=== PATIENT | female | born 1995 | race Two or more races ===

== ENCOUNTER 2020-04-05 13:36 | Emergency (ER) | payer OTHER ==
[~2020-04-05] VITALS: Ht 154.9 cm; Wt 56.5 kg
[2020-04-05] MEDS ORDERED: IV NORMAL SALINE 1,000ML 1,000 ML IV ONE (14:30)
[2020-04-05 14:38] LABS: BILIRUBIN,URINE NEG (NEG); CLARITY,URINE CLEAR; COLOR,URINE STRAW; GLUCOSE,URINE NEG (NEG)
[2020-04-05 14:39] LABS: BACTERIA,URINE 0 /HPF (0-FEW); NITRITE,URINE NEG (NEG); RBC,URINE 0 /HPF (0-2); UROBILINOGEN,URINE 0.2 mg/dL (0.2 mg/dL)
[2020-04-05 14:40] LABS: SQUAMOUS EPITHELIAL CELL,UR OCC /LPF
[2020-04-05] MEDS ORDERED: ONDANSETRON PF 4 MG/2 ML VIAL. IVP ONE (14:45)
--- NOTE | 2020-04-05 14:53 | RAD ---
EXAM: First Trimester OB Ultrasound INDICATION: Reason: bleeding in / Spl. Instructions: / History: TECHNIQUE: Real-time first trimester obstetrical ultrasound was performed with permanent freeze-frame documentation. COMPARISON: None. FINDINGS: GESTATIONAL SAC: No intrauterine or extrauterine gestational sac identified. POLE: Not applicable CROWN RUMP LENGTH: Not applicable HEART RATE: Not applicable PLACENTA: Not applicable MATERNAL UTERUS: Uterus measures 8.9 x 5.1 x 4.4 cm and has an endometrial stripe that measures 2.4 cm. MATERNAL ADNEXA: No adnexal mass with normal-appearing ovaries, measuring 3.4 x 3.1 x 2.3 cm on the right and 3.1 x 2.4 x 1.5 cm on the left. AGE/DATES: Gestational Age by LMP: 5 weeks 1 day Gestational Age by US: Undetermined EDC by LMP: December 05, 2020 EDC by US: Undetermined IMPRESSION: Sonographic findings compatible with a of unknown location, possibly reflecting inaccurate dates, complete spontaneous , or ectopic . Recommend correlation with serial beta hCG measurements and follow-up OB ultrasound. Electronically signed by: Kaela Irvin MD (04/05/2020 2:50 PM) [facility]
[2020-04-05 15:00] LABS: BASO % 1 % (0-3); EOS # 0.4 x10^3/uL (0.0-0.7); EOS % 6 % (0-3); HEMATOCRIT 39.2 % (36.0-47.0); HEMOGLOBIN 13.3 g/dL (12.0-15.5); LYMPH # 2.3 x10^3/uL (1.0-4.8); LYMPH % 34 % (24-48); MEAN CORPUSCULAR HEMOGLOBIN 30 pg (25-35); MEAN CORPUSCULAR HGB CONC 34 g/dL (31-37); MEAN CORPUSCULAR VOLUME 89 fL (79-100); MONO # 0.7 x10^3/uL (0.0-1.1); MONO % 10 % (0-9); NEUT # 3.4 x10^3uL (1.8-7.7); NEUT % 50 % (31-73); PLATELET COUNT 187 x10^3/uL (140-400); RED BLOOD COUNT 4.43 x10^6/uL (3.50-5.40); RED CELL DISTRIBUTION WIDTH 13.5 % (11.5-14.5); WHITE BLOOD COUNT 6.9 x10^3/uL (4.0-11.0)
[2020-04-05 15:08] LABS: CALCIUM 8.4 mg/dL (8.5-10.1); CREATININE 0.7 mg/dL (0.6-1.0); GFR 102.8; MAGNESIUM 2.1 mg/dL (1.8-2.4); POTASSIUM 3.4 mmol/L (3.5-5.1)
--- NOTE | 2020-04-05 15:31 | PHYS DOC ---
General Adult EDM: Chief Complaint: VAGINAL BLEEDING HPI: HPI: Patient is a 24 year old female, who presents with bilateral lower quadrant abdominal pain and bleeding. Patient reports a last menstrual period on the 28 of February. She reports having a home test positive earlier this week. She reports spotting vaginal bleeding over the past 2 days requiring 2 pads. She has colicky bilateral lower quadrant abdominal pain starting yesterday approximately 8 out of 10, patient denies radiation pain. She describes her pain in the ED as colicky and 6/10. She reports one episode of nausea approximately 2 hours ago, this episode resolved spontaneously. Past medical history is positive for elective at 7 weeks approximately 3 years ago. This was nonoperative done with medication. Patient denies any history of D&C. She reports no ongoing medical conditions and has no prior surgeries. Review of Systems: Review of Systems: Constitutional: Denies fever or chills Eyes: Denies redness or eye pain HENT: Denies nasal congestion or sore throat Respiratory: Denies cough or shortness of breath Cardiovascular: Denies chest pain or palpitations GI: Denies abdominal pain, nausea, or vomiting : Denies dysuria or hematuria Musculoskeletal: Denies back pain or joint pain Integument: Denies rash or skin lesions Neurologic: Denies headache, focal weakness or sensory changes Complete systems were reviewed and found to be within normal limits, except as documented in this note. Heart Score: Risk Factors: Risk Factors: DM, Current or recent (<one month) smoker, HTN, HLP, family history of CAD, obesity. Risk Scores: Score 0 - 3: 2.5% MACE over next 6 weeks - Discharge Home Score 4 - 6: 20.3% MACE over next 6 weeks - Admit for Clinical Observation Score 7 - 10: 72.7% MACE over next 6 weeks - Early Invasive Strategies Current Medications: Current Meds: Current Medications Medications (Trade) Dose Ordered Sig/[facility] Start Time Stop Time Status Last Admin Dose Admin Ondansetron HCl (Zofran) 4 mg 1X ONCE 04/05/20 14:45 04/05/20 14:46 DC Sodium Chloride 1,000 ml @ 1,000 mls/hr 1X ONCE 04/05/20 14:30 04/05/20 15:29 DC 04/05/20 14:57 1,000 MLS/HR Allergies: Allergies: Allergies Coded Allergies Type Severity Reaction Last Updated Verified No Known Drug Allergies 04/05/20 No Physical Exam: PE: Constitutional: Well developed, well nourished, no acute distress, non-toxic appearance HENT: Normocephalic, atraumatic. Cranial nerves II through XII grossly intact bilaterally. Eyes: PERRL, EOMI, conjunctiva normal, no discharge Neck: Normal range of motion, no tenderness, supple. Lungs & Thorax: Bilateral breath sounds clear to auscultation, no wheezing Abdomen: Soft, no tenderness. Negative rebound tenderness negative heel strike. Patient has guarding on palpation. Bilateral lower quadrant pain. Bowel sounds present in all 4 quadrants. Skin: Warm, dry, no erythema, no rash Back: No tenderness, no CVA tenderness Extremities: No tenderness, ROM intact, no edema. 2+4 pulses in all 4 extremities bilaterally. Neurologic: Alert and oriented X 3, normal motor function, normal sensory function, no focal deficits noted. Psychologic: Affect normal, judgment normal. 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 Patient has moderate amount of white and bloody discharge from her cervix. No large clots or tissue is seen in the vaginal vault. Mild cervical motion tenderness present. Right adnexal pain on palpation. No adnexal masses bilaterally. Current Patient Data: Labs: Laboratory Tests Test 04/05/20 13:48 04/05/20 14:03 04/05/20 14:39 Urine Collection Type Unknown Urine Color Straw Urine Clarity Clear Urine pH 6.5 Urine Specific Hominy 1.020 Urine Protein Neg (NEG-TRACE) Urine Glucose (UA) Neg mg/dL (NEG) Urine Ketones (Stick) Neg mg/dL (NEG) Urine Blood Small (NEG) Urine Nitrite Neg (NEG) Urine Bilirubin Neg (NEG) Urine Urobilinogen Dipstick 0.2 mg/dL (0.2 mg/dL) Urine Leukocyte Esterase Neg (NEG) Urine RBC 0 /HPF (0-2) Urine WBC 1-4 /HPF (0-4) Urine Squamous Epithelial Cells Occ /LPF Urine Bacteria 0 /HPF (0-FEW) POC Urine HCG, Qualitative hcg positive (Negative) White Blood Count 6.9 x10^3/uL (4.0-11.0) Red Blood Count 4.43 x10^6/uL (3.50-5.40) Hemoglobin 13.3 g/dL (12.0-15.5) Hematocrit 39.2 % (36.0-47.0) Mean Corpuscular Volume 89 fL (79-100) Mean Corpuscular Hemoglobin 30 pg (25-35) Mean Corpuscular Hemoglobin Concent 34 g/dL (31-37) Red Cell Distribution Width 13.5 % (11.5-14.5) Platelet Count 187 x10^3/uL (140-400) Neutrophils (%) (Auto) 50 % (31-73) Lymphocytes (%) (Auto) 34 % (24-48) Monocytes (%) (Auto) 10 % (0-9) H Eosinophils (%) (Auto) 6 % (0-3) H Basophils (%) (Auto) 1 % (0-3) Neutrophils # (Auto) 3.4 x10^3uL (1.8-7.7) Lymphocytes # (Auto) 2.3 x10^3/uL (1.0-4.8) Monocytes # (Auto) 0.7 x10^3/uL (0.0-1.1) Eosinophils # (Auto) 0.4 x10^3/uL (0.0-0.7) Basophils # (Auto) 0.0 x10^3/uL (0.0-0.2) Sodium Level 140 mmol/L (136-145) Potassium Level 3.4 mmol/L (3.5-5.1) L Chloride Level 105 mmol/L (98-107) Carbon Dioxide Level 24 mmol/L (21-32) Anion Gap 11 (6-14) Blood Urea Nitrogen 12 mg/dL (7-20) Creatinine 0.7 mg/dL (0.6-1.0) Estimated GFR (Cockcroft-Gault) 102.8 Glucose Level 90 mg/dL (70-99) Calcium Level 8.4 mg/dL (8.5-10.1) L Magnesium Level 2.1 mg/dL (1.8-2.4) EKG: EKG: [] Radiology/Procedures: Radiology/Procedures: PROCEDURE: OB <14 WKS EXAM: First Trimester OB Ultrasound INDICATION: Reason: bleeding in / Spl. Instructions: / History: TECHNIQUE: Real-time first trimester obstetrical ultrasound was performed with permanent freeze-frame documentation. COMPARISON: None. FINDINGS: GESTATIONAL SAC: No intrauterine or extrauterine gestational sac identified. POLE: Not applicable CROWN RUMP LENGTH: Not applicable HEART RATE: Not applicable PLACENTA: Not applicable MATERNAL UTERUS: Uterus measures 8.9 x 5.1 x 4.4 cm and has an endometrial stripe that measures 2.4 cm. MATERNAL ADNEXA: No adnexal mass with normal-appearing ovaries, measuring 3.4 x 3.1 x 2.3 cm on the right and 3.1 x 2.4 x 1.5 cm on the left. AGE/DATES: Gestational Age by LMP: 5 weeks 1 day Gestational Age by US: Undetermined EDC by LMP: December 05, 2020 EDC by US: Undetermined IMPRESSION: Sonographic findings compatible with a of unknown location, possibly reflecting inaccurate dates, complete spontaneous , or ectopic . Recommend correlation with serial beta hCG measurements and follow-up OB ultrasound. Electronically signed by: Kaela Irvin MD (04/05/2020 2:50 PM) [facility] Course & Med Decision Making: Course & Med Decision Making Pertinent Labs and Imaging studies reviewed. (See chart for details) [] 24-year-old female, G2, P0, presents with 1 day history of bilateral lower quadrant abdominal pain. This could represent a spontaneous or ectopic . Ultrasound appears negative for ectopic however it is likely too early to be seen on imaging. Patient appears hemodynamically stable. We will trend her beta-hCG and discharge to primary. GC results pending. [place] Disclaimer: [place] Disclaimer: This electronic medical record was generated, in whole or in part, using a voice recognition dictation system. Departure Departure: Impression: Primary Impression: Pelvic pain in Additional Impression: Threatened miscarriage in early Disposition: 01 HOME/RESIDENCE PRIOR TO ADM Condition: STABLE Referrals: PCP,NO (PCP) Patient Instructions: Abdominal Pain During , [id number], Threatened Miscarriage, [id number], Vaginal Bleeding During , First Trimester Additional Instructions: Please follow up with your doctor or urgent care in 48-72 hours for recheck of your BHCG level. This will help further evaluate for an ectopic . Justification of Admission: Justification of Admission: Justification of Admission Dx: N/A SUGEY GARCIA DO Apr 05, 2020 15:30
[2020-04-05 17:05] VITALS: BP 95/39
[2020-04-06 18:07] LABS: CHLAMYDIA PROBE Negative (Negative)
== END 2020-04-05 17:09 | disposition home or self-care (01) ==
LOC: ER 13:36
DX: O20.0 Threatened abortion (principal); Z3A.01 Less than 8 weeks gestation of pregnancy
CPT/HCPCS: 36415; 76801; 80048; 81001; 81025; 83735; 84702; 85025; 86900; 86901; 87491; 87591; 96360; 99284; J7030; Q0111

== ENCOUNTER 2020-05-27 20:11 | Emergency (ER) | payer OTHER ==
[~2020-05-27] VITALS: Ht 154.9 cm; Wt 56.5 kg
--- NOTE | 2020-05-27 20:17 | PHYS DOC ---
Past History Past Medical History: Additional Past Medical Histor: Prior Past Surgical History: No Surgical History Smoking: Non-smoker Alcohol Use: None Drug Use: None General Adult EDM: Chief Complaint: VAGINAL PROBLEM HPI: HPI: ".. I don't know what's going on.. .About two months ago.. I was .. then had some bleeding... and I was having a miscarry... but the bleeding has started again.. and I am cramping really bad.. got fever and chills.. I just hurt all over in my lower abdomen. " Patient is a 25 year old female who presents with above complaints of vaginal bleeding and severe cramping. Pt. complaining of fever and chills.. Patient states she has been passing clots. The patient denies any trauma. No specific ill contacts. No recent travel outside the [place] area. Follows with Dr. Glass Review of Systems: Review of Systems: Constitutional: Complains of fever or chills Eyes: Denies change in visual acuity HENT: Denies nasal congestion or sore throat Respiratory: Denies cough or shortness of breath Cardiovascular: Denies chest pain or edema GI: Complains of severe pelvic abdominal pain, nausea,. Denies vomiting, bloody stools or diarrhea : Denies dysuria Musculoskeletal: Denies back pain or joint pain Integument: Denies rash Neurologic: Denies headache, focal weakness or sensory changes Endocrine: Denies polyuria or polydipsia Lymphatic: Denies swollen glands Psychiatric: Denies depression or anxiety Heart Score: HEART Score for Chest Pain: HEART Score for Chest Pain Response (Comments) Value History Slighlty/Non-Suspicious 0 ECG Normal 0 Age < 45 0 Risk Factors 1 or 2 Risk Factors 1 Troponin < Normal Limit 0 Total 1 Risk Factors: Risk Factors: DM, Current or recent (<one month) smoker, HTN, HLP, family history of CAD, obesity. Risk Scores: Score 0 - 3: 2.5% MACE over next 6 weeks - Discharge Home Score 4 - 6: 20.3% MACE over next 6 weeks - Admit for Clinical Observation Score 7 - 10: 72.7% MACE over next 6 weeks - Early Invasive Strategies Family History: Family History: Noncontributory to presentation Current Medications: Current Meds: See nursing for home meds Allergies: Allergies: Allergies Coded Allergies Type Severity Reaction Last Updated Verified No Known Drug Allergies 04/05/20 No Physical Exam: PE: Constitutional: Well developed, well nourished, in acute distress, ill in appearance appearance. Having shaking chills. HENT: Normocephalic, atraumatic, bilateral external ears normal, oropharynx moist, no oral exudates, nose normal. [] Eyes: PERRLA, EOMI, conjunctiva normal, no discharge. [] Neck: Normal range of motion, no tenderness, supple, no stridor. [] Cardiovascular: Tachycardia heart rate regular rhythm, no murmur [] Lungs & Thorax: Bilateral breath sounds equal apex on auscultation [] Abdomen: Bowel sounds decreased, marked pelvic tenderness, no masses, no pulsatile masses. Vaginal exam-active bleeding from os. Cervical motion tenderness. Adnexal tenderness. Rectal some formed stool in vault. Rebound to the lower abdomen Skin: Warm, diaphoretic, no erythema, no rash. [] Back: No tenderness, no CVA tenderness. [] Extremities: No tenderness, no cyanosis, no clubbing, ROM intact, no edema. Bilateral psoas or heel tap Neurologic: Alert and oriented X 3, normal motor function, normal sensory function, no focal deficits noted. [] Psychologic: Affect anxious, judgement normal, mood normal. [] EKG: EKG: EKG shows a sinus rhythm at 65 bpm, slightly prolonged QT interval at 522 ms, QTC is 533 ms [] Radiology/Procedures: Radiology/Procedures: [[address] [address] IMAGING REPORT Signed PATIENT: NEYDA WONG ACCOUNT: [id number] : 1995 LOCATION: ER AGE: 25 SEX: F EXAM STATUS: REG ER ORD. PHYSICIAN: DORIS ALCANTAR MD REASON: VAG BLEEDING PROCEDURE: PREG 1ST TRIMESTER Exam: Ultrasound OB less than 14 weeks Indication: Vaginal bleeding Technique: Real-time grayscale and color Doppler images of the pelvis were obtained by the department food service coordinator. Comparisons: None FINDINGS: Uterus measures 11 x 6.2 x 5.5 cm. In the lower uterine segment/cervix in the endometrium there is a 4.3 cm cystic lesion. No internal yolk sac or pole is identified. Ovaries are not visualized. No pelvic free fluid identified. IMPRESSION: At the lower uterine segment/cervix within the endometrium there is a cystic lesion measuring 4.3 cm which may represent an abnormal gestational sac. No yolk sac or pole are identified. Findings are favored represent a failing intrauterine . Recommend correlation with serial beta hCG measurements and short-term follow-up ultrasound. Electronically signed by: Juan Jose Price MD (05/27/2020 9:09 PM) [id number] DICTATED AND SIGNED BY: JUAN JOSE PRICE MD DATE: 05/27/202108 CC: DORIS ALCANTAR MD; PCP,NO ~ ][address] [address] IMAGING REPORT Signed PATIENT: NEYDA WONG ACCOUNT: [id number] : 1995 LOCATION: ER AGE: 25 SEX: F EXAM STATUS: REG ER ORD. PHYSICIAN: DORIS ALCANTAR MD REASON: VAG BLEEDING PROCEDURE: PREG 1ST TRIMESTER Exam: Ultrasound OB less than 14 weeks Indication: Vaginal bleeding Technique: Real-time grayscale and color Doppler images of the pelvis were obtained by the department food service coordinator. Comparisons: None FINDINGS: Uterus measures 11 x 6.2 x 5.5 cm. In the lower uterine segment/cervix in the endometrium there is a 4.3 cm cystic lesion. No internal yolk sac or pole is identified. Ovaries are not visualized. No pelvic free fluid identified. IMPRESSION: At the lower uterine segment/cervix within the endometrium there is a cystic lesion measuring 4.3 cm which may represent an abnormal gestational sac. No yolk sac or pole are identified. Findings are favored represent a failing intrauterine . Recommend correlation with serial beta hCG measurements and short-term follow-up ultrasound. Electronically signed by: Juan Jose Price MD (05/27/2020 9:09 PM) [id number] DICTATED AND SIGNED BY: JUAN JOSE PRICE MD DATE: 05/27/202108 CC: DORIS ALCANTAR MD; PCP,NO ~ Course & Med Decision Making: Course & Med Decision Making Pertinent Labs and Imaging studies reviewed. (See chart for details) Discussed presentation, testing and treatment plan with at [facility]. Will accept pt in transfer to [facility] Impression: 1. Failing IUP 2. Fever and Chills 3. Leukocytosis 17.6 with 72 Segs 4. Mild Hypokalemia 3.1 5. Sepsis? 6. BHCG= 2,850 7. Elevated CRP 15.9 [] Dragon Disclaimer: Dragon Disclaimer: This electronic medical record was generated, in whole or in part, using a voice recognition dictation system. Departure Departure: Disposition: 01 DC HOME SELF CARE/HOMELESS Condition: STABLE Referrals: PCP,NO (PCP) DORIS ALCANTAR MD May 27, 2020 20:17
[2020-05-27 20:56] LABS: BASO # 0.1 x10^3/uL (0.0-0.2); BASO % 0 % (0-3); EOS # 0.3 x10^3/uL (0.0-0.7); EOS % 2 % (0-3); HEMATOCRIT 36.5 % (36.0-47.0); HEMOGLOBIN 11.9 g/dL (12.0-15.5); LYMPH # 3.2 x10^3/uL (1.0-4.8); LYMPH % 18 % (24-48); MEAN CORPUSCULAR HEMOGLOBIN 29 pg (25-35); MEAN CORPUSCULAR HGB CONC 33 g/dL (31-37); MEAN CORPUSCULAR VOLUME 90 fL (79-100); MONO # 1.3 x10^3/uL (0.0-1.1); MONO % 8 % (0-9); NEUT # 12.8 x10^3uL (1.8-7.7); NEUT % 72 % (31-73); PLATELET COUNT 192 x10^3/uL (140-400); RED BLOOD COUNT 4.07 x10^6/uL (3.50-5.40); RED CELL DISTRIBUTION WIDTH 13.2 % (11.5-14.5); WHITE BLOOD COUNT 17.6 x10^3/uL (4.0-11.0)
[2020-05-27] MEDS: FAMOTIDINE 20 MG/2 ML VIAL IVP ONE (20:59)
[2020-05-27] MEDS: IV RINGERS SOLUTION,LACTATED 1,000 ML IV SCH (20:59)
[2020-05-27] MEDS ORDERED: ONDANSETRON PF 4 MG/2 ML VIAL. ONE (21:04)
[2020-05-27 21:05] LABS: CALCIUM 8.8 mg/dL (8.5-10.1); CREATININE 0.8 mg/dL (0.6-1.0); GFR 87.4; POTASSIUM 3.1 mmol/L (3.5-5.1)
[2020-05-27] MEDS: ONDANSETRON PF 4 MG/2 ML VIAL. IVP ONE (21:05)
[2020-05-27 21:11] LABS: ALBUMIN 3.4 g/dL (3.4-5.0); DIRECT BILIRUBIN 0.2 mg/dL (0.0-0.2); TOTAL BILIRUBIN 0.4 mg/dL (0.2-1.0); TOTAL PROTEIN 6.9 g/dL (6.4-8.2)
--- NOTE | 2020-05-27 21:12 | RAD ---
Exam: Ultrasound OB less than 14 weeks Indication: Vaginal bleeding Technique: Real-time grayscale and color Doppler images of the pelvis were obtained by the department commercial pest control technician. Comparisons: None FINDINGS: Uterus measures 11 x 6.2 x 5.5 cm. In the lower uterine segment/cervix in the endometrium there is a 4.3 cm cystic lesion. No internal yolk sac or pole is identified. Ovaries are not visualized. No pelvic free fluid identified. IMPRESSION: At the lower uterine segment/cervix within the endometrium there is a cystic lesion measuring 4.3 cm which may represent an abnormal gestational sac. No yolk sac or pole are identified. Findings are favored represent a failing intrauterine . Recommend correlation with serial beta hCG measurements and short-term follow-up ultrasound. Electronically signed by: Juan Jose Ambrocio MD (05/27/2020 9:09 PM) [id number]
[2020-05-27] MEDS ORDERED: cefTRIAXone SODIUM 1 GM VIAL ONE (21:32)
[2020-05-27] MEDS ORDERED: IV NORMAL SALINE 50ML 50 ML ONE (21:32)
[2020-05-27] MEDS: MORPHINE SULFATE 10 MG/ML SYRINGE. SQ ONE (21:37)
[2020-05-27 21:43] LABS: % EOS 3 % (0-5); % LYMPHS 19 % (24-48); % MONOS 6 % (0-10); % SEGS 72 % (35-66); PLT ESTIMATE ADEQUATE (ADEQUATE)
[2020-05-27] MEDS: GENTAMICIN SULFATE 240 MG in IV NORMAL SALINE 100ML 100 ML IV SCH (23:30)
[2020-05-27] MEDS: IV RINGERS SOLUTION,LACTATED 1,000 ML IV ONE (23:58)
[2020-05-28 00:24] LABS: BARBITURATES NEG (NEG); BENZODIAZEPINES NEG (NEG); CANNABINOIDS NEG (NEG); COCAINE NEG (NEG); METHADONE NEG (NEG); OPIATES POS (NEG); PHENCYCLIDINE NEG (NEG)
[2020-05-28 00:30] LABS: AMPHETAMINE/METHAMPHETAMINE NEG (NEG)
[2020-05-28] MEDS ORDERED: IV RINGERS SOLUTION,LACTATED 1,000 ML IV ONE (00:30)
[2020-05-28 00:34] LABS: BACTERIA,URINE 0 /HPF (0-FEW); BILIRUBIN,URINE NEG (NEG); CLARITY,URINE CLEAR; COLOR,URINE YELLOW; GLUCOSE,URINE NEG (NEG); NITRITE,URINE NEG (NEG); SQUAMOUS EPITHELIAL CELL,UR OCC /LPF; UROBILINOGEN,URINE 0.2 mg/dL (0.2 mg/dL); WBC,URINE OCC /HPF (0-4)
[2020-05-28 00:45] VITALS: BP 91/57
--- NOTE | 2020-05-28 01:01 | EKG ---
[address] [address] Test Date: 2020-05-28 Test Time: 00:16:43 Pat Name: NEYDA WONG Department: Room: Gender: F Director Staffing: : 1995 Requested By: DORIS ALCANTAR Order Number: [id number] Reading MD: Walker Barnes MD Measurements Intervals [place] Rate: 61 P: 45 NE: 142 QRS: 42 QRSD: 74 T: 25 QT: 522 QTc: 533 Interpretive Statements SINUS RHYTHM PROLONGED QT Electronically Signed On 05-28-2020 14:05:36 CDT by Walker Barnes MD
[2020-05-29 21:06] LABS: CHLAMYDIA PROBE Negative (Negative)
== END 2020-05-28 00:51 | disposition short-term general hospital (02) ==
LOC: ER 20:11
DX: O07.4 Failed attempted termination of pregnancy without complication (principal); D72.829 Elevated white blood cell count, unspecified; E87.6 Hypokalemia; R79.82 Elevated C-reactive protein (CRP)
CPT/HCPCS: 36415; 76801; 80048; 80076; 80307; 81001; 84702; 85007; 85025; 85610; 85730; 86140; 87040; 87491; 87591; 93005; 96361; 96365; 96367; 96372; 96375; 99285; J0696; J2270; J2405; J3490; J7120; Q0111